=== PATIENT | female | born 1955 | race Caucasian/White ===

== ENCOUNTER 2023-05-10 19:01 | Emergency (ER) | payer MEDICARE, SELFPAY ==
[2023-05-10 19:14] VITALS: BP 128/78; BP 129/81; PULSE 60; PULSE 76; RESP 16; TEMP 36.7; O2SAT 98; O2SAT 99; BMI 25.8
--- NOTE | 2023-05-10 19:27 | ED.GENADULT ---
HPI - General Adult General Chief complaint: General Medical Stated complaint: bug flew in ear, r side facial tenderness, per ems Time Seen by Provider: 05/10/23 19:55 Source: patient, RN notes reviewed and old records reviewed Mode of arrival: EMS Limitations: no limitations History of Present Illness HPI narrative: 59-year-old female presents for evaluation of right ear pain. Patient reports that [place] in [place] She states that before she could put her ?mosquito net up, a bug flew in my ear. ? Patient reports that she felt a crawling around for a few minutes. 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 She complains of right ear pain Review of Systems Constitutional: Constitutional: Denies chills, Denies fever(s) and Denies headache(s) ENT: Reports otalgia and Denies headache(s) Comments: Questionable foreign body in right ear Neurologic: Denies headache(s) PMFSH Social History Social History Smoked in Last 30 Days: No Use of substances other than those prescribed or required for medical reasons: Yes Substance Use Type: Marijuana Substance Use Frequency Other:: marijuana gummies for bed to sleep Advance Directives: No Advance Directives Information Provided: Yes Physical Exam ED Vital Signs: Vital Signs - 24 hr 05/10/23 19:14 05/10/23 20:42 Temperature 98.1 F 97.8 F Pulse Rate 76 60 Respiratory Rate 16 18 Blood Pressure 129/81 102/46 L Pulse Oximetry 98 98 Oxygen Delivery Method Room Air Room Air BMI result Body Mass Index 25.8 Const General: healthy appearing, comfortable, no acute distress, alert and awake Nutritional Appearance: well nourished Orientation/consciousness: patient oriented x3 HENMT Other: No evidence of foreign body in either ear Head: Yes normocephalic and Yes atraumatic Ears: external ears normal, TM's normal bilaterally and EAC's normal Eyes Eyelids: Yes eyelids normal Conjunctivae: conjunctivae normal Sclerae: sclerae normal Corneas: corneas normal Pupils: Equal, round and reactive pupils present EOM: EOMs intact bilaterally Neck Neck: Yes full ROM Resp Effort & Inspection: normal respiratory effort, able to speak in complete sentences and not labored Skin General skin exam: no rashes or lesions noted and elasticity normal Neuro General: patient oriented x3 Cranial nerves: Yes CN's II-XII intact bilaterally, Yes Equal, round and reactive pupils present and Yes Bilaterally intact EOM present Cognition (Neuro): normal cognition Extrem Other: Moving all extremities well without any obvious deformities Course Course Course Narrative: RME - 67 yo female presenting to the ER via EMS for evaluation after a bug flew into her right ear about 3 hours ago. She is worried she may have encephalitis and wants IV antibiotics STAT. Medical Decision Making Medical Decision Making [facility] Narrative: Patient reported a foreign body sensation in her right ear. Her physical exam is benign. There is no edema, no erythema, tympanic membranes intact bilaterally. No evidence of foreign body she was reassured and is stable for discharge Differential Diagnosis Foreign body Otitis media Otitis externa Tympanic membrane perforation Discharge Plan Discharge Clinical Impression: Acute pain of right ear Patient Disposition: Home, Self-Care Instructions: Earache (ED) Additional Instructions: You do not have anything in your ear on examination. Your tympanic membrane is intact There are no signs of any infection You may use ibuprofen or Tylenol for any pain Return for new or worsening symptoms Interventions: ED Discharge Assessment Last Done: 05/10/23 20:50 Discharge Date/Time: 05/10/23 20:55
[2023-05-10 20:42] VITALS: BP 102/46; PULSE 60; RESP 18; TEMP 36.6; O2SAT 98
== END 2023-05-10 20:55 | disposition home or self-care (01) ==
PROVIDERS: Emergency Provider Internal Medicine
DX: H92.01 Otalgia, right ear (principal)
CPT/HCPCS: 99283; 99284